=== PATIENT | male | born 1995 | race Hispanic/Latino ===

== ENCOUNTER 2021-10-27 17:17 | Emergency (ER) | payer OTHER ==
[~2021-10-27] VITALS: Ht 170.2 cm; Wt 81.6 kg
[2021-10-27] MEDS ORDERED: ACETAMINOPHEN 500 MG TABLET PO ONE (18:00)
[2021-10-27] MEDS ORDERED: CEFTRIAXONE 1G VIAL IM ONE (18:00)
[2021-10-27] MEDS ORDERED: TETANUS/DIPHTHERIA TOXOID [ADULT] 0.5 ML VIAL IM ONE (18:00)
[2021-10-27 18:13] LABS: BASOPHILS % (AUTO) 0.2 % (0.0-5.0); EOSINOPHILS % (AUTO) 0.4 % (0.0-8.0); HEMATOCRIT 43.2 % (42-54); LYMPHOCYTES % (AUTO) 14.7 % (21.0-51.0); MEAN CORPUSCULAR HGB CONC 34.5 g/dL (32.0-36.0); MEAN CORPUSCULAR VOLUME 86.9 fL (79-99); MONOCYTES % (AUTO) 5.6 % (3.0-13.0); NEUTROPHILS % (AUTO) 78.9 % (40.0-77.0); PLATELET COUNT (AUTO) 180 K/uL (130-400); RED BLOOD CELL COUNT(AUTO) 4.97 MIL/uL (4.50-6.20); RED CELL DISTRIBUTION WIDTH 11.8 % (11.0-15.5); WHITE BLOOD COUNT (AUTO) 9.1 K/uL (4.8-10.8)
[2021-10-27 18:39] LABS: CREATININE 1.2 mg/dL (0.5-1.5); POTASSIUM 3.5 mmol/L (3.5-5.1)
[2021-10-27 18:46] LABS: ALBUMIN 4.5 g/dL (3.5-5.0); BILIRUBIN,TOTAL 0.3 mg/dL (0.2-1.0); TOTAL PROTEIN, SERUM 7.8 g/dL (6.0-8.3)
[2021-10-27] MEDS ORDERED: LIDOCAINE HCL 400MG/20ML VIAL ONE (20:13)
[2021-10-27] MEDS ORDERED: OCTYL 2-CYANOACRYLATE 1 EACH TP ONE (20:28)
[2021-10-27] MEDS ORDERED: CYCL-309 PO (20:45)
[2021-10-27] MEDS ORDERED: CEPH500B PO (20:45)
[2021-10-27] MEDS ORDERED: IBUP-2070 PO (20:45)
[2021-10-27 20:53] VITALS: BP 120/64
== END 2021-10-27 21:05 | disposition home or self-care (01) ==
LOC: EDH 17:17
DX: S51.811A Laceration without foreign body of right forearm, initial encounter (principal); S61.216A Laceration without foreign body of right little finger without damage to nail, initial encounter; S40.811A Abrasion of right upper arm, initial encounter; S30.811A Abrasion of abdominal wall, initial encounter; S80.212A Abrasion, left knee, initial encounter; S80.211A Abrasion, right knee, initial encounter; V49.69XA Unspecified car occupant injured in collision with other motor vehicles in traffic accident, initial encounter; Y93.89 Activity, other specified; Y92.413 State road as the place of occurrence of the external cause; Y99.8 Other external cause status
CPT/HCPCS: 12002; 36415; 70450; 72125; 73030; 73090; 73502; 73552; 80053; 82550; 85025; 96372; 99285; J0696; J3490